=== PATIENT | female | born 1975 | race Caucasian/White ===

== ENCOUNTER 2017-03-31 23:34 | Emergency (ER) | payer OTHER ==
--- NOTE | 2017-04-01 03:19 | ED ORDER SUMMARY ---
..... Patient: ROBBY PACK OrderSheet [facility] VisitID: [id number] [place] [address] 41y, F Registration Date/Time: 03/31/2017 ORDER SHEET Weight: 51.7 kg (stated) Allergies: No Known Drug Allergy GENERAL ORDERS: UA-Culture if indicated Urgent (02:00 04/01/2017 Rodney BURCIAGA) (Ack 2:08 CHagerty ER Machine Splitter) (2:11 RCollier R.N.) Urine Urgent (02:00 04/01/2017 Rodney BURCIAGA) (Ack 2:08 CHagfreeman ER Machine Splitter) (2:11 RCollier R.N.) Lumbar Spine 2 or 3V Urgent (02:28 04/01/2017 Rodney BURCIAGA) (Ack 2:29 CHagerty ER Machine Splitter) (2:52 Froylan) MEDICATION ORDERS: IV FLUIDS: Dilaudid IV 1 mg (HIGH ALERT MEDICATION, NOW) (01:59 04/01/2017 Rodney BURCIAGA) (Ack 2:00 RCollier R.N.) (2:12 RCollier R.N.) Zofran IV 4 mg (NOW) (02:00 04/01/2017 Rodney BURCIAGA) (Ack 2:00 RCollier R.N.) (2:12 RCollier R.N.) Toradol IV 30 mg (NOW) (02:28 04/01/2017 Rodney BURCIAGA) (Ack 2:34 RCollier R.N.) (2:53 RCollier R.N.) ORDER SHEET NOTES: [Electronically signed by Hayley Jimenez R.N. (03:38 04/01/2017)] [Electronically signed by Donald Jaimes MD (19:43 04/20/2017)] [Electronically locked/signed by Hayley Jimenez R.N. (03:38 04/01/2017)]
--- NOTE | 2017-04-01 03:19 | ED NURSING NOTES ---
Clinical Report - Nurses [facility] [place] [address] 03/31/2017 23:35 Patient: ROBBY PACK TRIAGE Triage time 00:Apr 01 2017. Acuity: LEVEL 3. Chief Complaint: BACK PAIN. Alert. PREETHI COMA SCORE: Preethi Coma Scale: 15- eyes open spontaneously (4); best verbal response- oriented x 4 (5); best motor response- obeys commands (6). --00:13 Blaze Rodriguez R.N. 00:04 04/01/17. BP: 104/50. HR: 60. RR: 16. O2 saturation: 96% on room air. Temp: 99 F (oral). Pain level now: 8/10. Additional comments: Back/Hip pain. --00:13 Blaze Rodriguez R.N. Weight: 51.7 kg stated. Height/Length: 63 inches Per Patient. BMI: 20.2. --00:06 Blaze Rodriguez R.N. Medications Claritin Oral, as needed. Multivitamins Oral 1 pill, daily. --00:08 Blaze Rodriguez R.N. Allergies No Known Drug Allergy. --00:09 Blaze Rodriguez R.N. History Arrived by private vehicle. Historian: patient. Accompanied by friend. Primary physician ([facility], [place], [place]). ( GLF landing on her (R) Hip region). This started yesterday. Onset. (about 1 hour ago). She has had trouble walking. History of recent trauma- fall ((R) Hip). ( trouble sitting). PAST MEDICAL HX: Tetanus status: unknown. Immunizations: status is unknown. Last normal menstrual period- a few years ago. Denies current . SOCIAL HX: Former smoker, end date 2015. History of drug use: marijuana. No alcohol use. No infectious disease exposure. ABUSE ASSESSMENT: No report of abuse. FALL RISK ASSESSMENT: Fall risk assessment completed. No fall risk identified. NUTRITIONAL RISK ASSESSMENT: The nutritional risk assessment revealed no deficiencies. FUNCTIONAL ASSESSMENT: Functional assessment: no impairments noted. LEARNING NEEDS ASSESSMENT: The learning needs assessment revealed no barriers. SKIN INTEGRITY ASSESSMENT: Skin integrity risk assessment completed. No skin integrity risk identified. --00:13 Blaze Rodriguez R.N. PROBLEMS: Seasonal allergic rhinitis. --00:10 Blaze Rodriguez R.N. ADDITIONAL SURGERIES: Ankle. --00:10 Blaze Rodriguez R.N. Interventions ID band on patient. To treatment room. --00:13 Blaze Rodriguez R.N. PHYSICAL ASSESSMENT To room via wheelchair. GENERAL / NEURO / PSYCH: Alert. Oriented X 4. RESPIRATORY: Respirations not labored. CVS: Normal heart rate and rhythm. GI / : Abdomen soft. EXTREMITIES: Limited ROM present in the right thigh. BACK: Soft tissue tenderness (R iliac crest and lower back). --00:14 Blaze Rodriguez R.N. NURSING PROGRESS NOTES Patient gowned. Reassurance given. Patient identifiers checked. Call light placed in reach. Side rails up x 1. Bed placed in lowest position. Brakes of bed on. Patient ready for evaluation- chart flagged and ED physician notified. --00:14 Blaze Rodriguez R.N. Care transferred and report received. --00:26 Hayley Jimenez R.N. ( pt repositioned for comfort. Ice pack given to pt, placed under right flank area. Warm blanket provided.). --00:36 Hayley Jimenez R.N. Patient ID band checked for patient name and birthdate. Clean catch urine collected; sample sent to lab. Specimen labeled in the presence of the patient. Two patient identifiers checked. Call light placed in reach of patient. Side rails up x 2. Bed placed in lowest position. Brakes of bed on. ( pt called needed to go to the bathroom. Offered bedpan and commode patient refuse assisted patient to bathroom then back to bed. patient now crying. ice bag applied to back.). --01:30 Yi Arriola R.N. 01:32 04/01/17. HR: 75 (regular, normal rate and strong). RR: 16 (regular, unlabored and normal). O2 saturation: 100% on room air. Pain level now: 07/18. --01:45 Yi Arriola R.N. 02:00 04/01/2017 Site #1 started via IV in the right antecubital space with an 20g angiocath, with aseptic technique and good blood return; one attempt. Blood drawn: rainbow set. Labeled in the presence of the patient and sent to the lab. Saline lock flushed with 10 mL saline. --02:11 Hayley Jimenez R.N. 02:05 04/01/2017 Zofran (Ondansetron HCl) IVP 4 mg given over 30 second(s) via site #1. Allergies verified and confirmed 5 rights. IV patency established. IV site checked: no pain, redness, or swelling. IV flushed thoroughly pre- and post-medication administration. IVP given by RN. --02:12 Hayley Jimenez R.N. 02:06 04/01/2017 Dilaudid (HYDROmorphone HCl PF) IVP 1 mg given over 1 minute(s) via site #1. Allergies verified, confirmed 5 rights and sedative warning given to the patient. IV patency established. IV site checked: no pain, redness, or swelling. IV flushed thoroughly pre- and post-medication administration. IVP given by RN. --02:12 Hayley Jimenez R.N. 02:12 04/01/17. BP: 109/55. HR: 80. RR: 15. O2 saturation: 99% on room air. Todd-Fall pain scale: 8/10. --02:13 Hayley Jimneez R.N. Patient transported to radiology by stretcher with tech. (02:35). --02:37 Hayley Jimenez R.N. 02:50. Patient returned from radiology by stretcher with tech. --02:53 Hayley Jimenez R.N. 02:51 04/01/2017 Toradol IVP 30 mg given over 1 minute(s) via site #1. Allergies verified and confirmed 5 rights. IV patency established. IV site checked: no pain, redness, or swelling. IV flushed thoroughly pre- and post-medication administration. IVP given by RN. --02:53 Hayley Jimenez R.N. 02:53 04/01/17. BP: 110/58. HR: 66. RR: 16. O2 saturation: 94% on room air. Todd-Fall pain scale: 01/16. --02:54 Hayley Jimenez R.N. DISPOSITION / DISCHARGE 03:30 04/01/2017 Site #1 removed upon discharge. Catheter intact. Manual pressure and bandage applied. --03:35 Hayley Jimenez R.N. Condition at departure: improved and stable. No learning barriers present. Discharge instructions provided and reviewed with the patient. Reviewed medication(s) side effects, precautions, dosing and course information. Prescription(s) given to the patient. Patient verbalized understanding. Written instructions provided in Italian. The patient was discharged home and accompanied by package lift operator. She left the Emergency Department in a wheelchair. Plant Nursery Worker driving. --03:36 Hayley Jimenez R.N. 03:33 04/01/17. BP: 101/50. HR: 81. RR: 15. O2 saturation: 93% on room air. Temp: deferred. Todd-Fall pain scale: 01/16. --03:36 Hayley Jimenez R.N. Locked/Released at 04/01/2017 3:38 by Hayley Jimenez R.N.
--- NOTE | 2017-04-01 03:19 | ED CLINICAL REPORT ---
Clinical Report - Physicians/Mid Levels [facility] [address] [place] [address] 03/31/2017 23:35 Patient: ROBBY PACK Time Seen: 01:01. Arrived- By private vehicle. Historian- patient. HISTORY OF PRESENT ILLNESS Chief Complaint: BACK INJURY. It is described as being severe and in the area of the lower lumbar spine and right lower lumbar spine and radiating to the right thigh. The quality is noted to be "pain". Onset- about 1 hour ago and it is still present. It was abrupt in onset and has been constant. No bladder dysfunction or bowel dysfunction. Patient notes an injury. Mechanism of injury- she lost balance and fell. (fell). No other injury. REVIEW OF SYSTEMS No chills, fever, sweats, calf pain or chest pain. No cough, difficulty breathing, pedal edema, palpitations or abdominal pain. No constipation, diarrhea, nausea or vomiting. She has had urgency and mild pain during urination. All systems otherwise negative, except as recorded above. PAST HISTORY Problems: Seasonal allergic rhinitis. Additional Surgeries: Ankle. Medications: Claritin Oral, as needed. Multivitamins Oral 1 pill, daily. Allergies: No Known Drug Allergy. SOCIAL HISTORY Former smoker, end date 2015. History of occasional drug use: marijuana. No alcohol use. FAMILY HISTORY Denies family medical history. ADDITIONAL NOTES The nursing notes have been reviewed. PHYSICAL EXAM Vital Signs: 04/01/2017 00:04 BP: 104/50. HR: 60. RR: 16. O2 saturation: 96%. Temp: 99 F. Pain level now: 8/10. Have been reviewed. Appearance: Alert. Eyes: Pupils equal, round and reactive to light. ENT: Pharynx normal. Neck: Normal inspection. Painless ROM. No vertebral tenderness. CVS: Heart sounds normal. Respiratory: No respiratory distress. Breath sounds normal. Abdomen: No visible injury. Soft and nontender. Bowel sounds normal. No organomegaly. No mass. Back: Muscle spasm of the back. Moderately limited ROM in the back- in the lumbar spine: decreased flexion, extension, right lateral bending, left lateral bending and rotation to the right and left. No vertebral point tenderness. Skin: Skin warm and dry. Normal skin color. Normal skin turgor. Extremities: No lower extremity edema. Extremities nontender. No calf tenderness. Neuro: No motor deficit. No sensory deficit. LABS, X-RAYS, AND EKG LS-Spine X-rays: (IMPRESSION: 1. Straightening of the lumbar spine suggestive of muscular spasm.). The X-rays were interpreted by the radiologist and contemporaneously by me. Laboratory Tests: UA-Culture if indicated: (ORI: 04/01/2017 01:25) ( MsgRcvd 04/01/2017 02:22) Final results Test Result Flag Units (Reference) URINE COLOR YELLOW URINE APPEARANCE CLEAR URINE GLUCOSE NEGATIVE (NEGATIVE) URINE BILIRUBIN NEGATIVE (NEGATIVE) URINE KETONE NEGATIVE (NEGATIVE) URINE SPECIFIC GRAVITY 1.010 (1.010-1.030) URINE PH 6.0 (5.0-8.0) URINE PROTEIN NEGATIVE (NEGATIVE) URINE UROBILINOGEN 0.2 EU/dL (0.2-1.0) URINE NITRITE NEGATIVE (NEGATIVE) URINE BLOOD 1+ (NEGATIVE) URINE LEUK ESTERASE POSITIVE (NEGATIVE) URINE RBC 0-1 rbc/hpf (0-1) URINE WBC 0-1 wbc/hpf (0-1) URINE EPITHELIAL CELLS 0-1 EPI/hpf (0-5) URINE BACTERIA FEW (1+) (NONE SEEN) URINE COMMENT CULTURE INDICATED URINE CULTURES ARE SET-UP BASED ON THE FOLLOWING CRITERIA:POSITIVE NITRITEPOSITIVE LEUKOCYTE ESTERASEGREATER THAN 10 WHITE BLOOD CELLSMODERATE (2+) OR GREATER BACTERIA Urine: (ORI: 04/01/2017 01:25) ( [facility] 04/01/2017 02:15) Final results Test Result Flag Units (Reference) URINE NEGATIVE . PROGRESS AND PROCEDURES Course of Care: Patient is stable. Patient/family counseled. Old medical records reviewed. Disposition: Discharged. Condition: stable. CLINICAL IMPRESSION Traumatic lumbar back pain. Sciatica present on the right. Acute urinary tract infection. INSTRUCTIONS Apply ice for 20 minutes four times a day until better. Don't apply ice directly to skin and don't use while asleep. No driving or operating machinery while taking medication. Sedative medication was given during your visit. No lifting greater than 5 lbs, no bending or stooping or no prolonged sitting until well. Do not work for three days. Warnings: GENERAL WARNINGS: Return or contact your physician immediately if your condition worsens or changes unexpectedly, if not improving as expected, or if other problems arise. Prescription Medications: Ibuprofen 600mg tablets: take 1 tablet orally every 8 hours as needed for pain. Dispense thirty (30). No refills. Flexeril 10 mg: Take 1 orally every 8 hours as needed for muscle spasm. Dispense twenty (20). No refills. Substitution is permissible. Macrobid 100 mg: Take 1 capsule orally every 12 hours for 7 days. No refills. Substitution is permissible. Follow-up: Follow up with your doctor Monday in two days. Call for the next available appointment. Understanding of the discharge instructions verbalized by patient. (Electronically signed by Donald Jaimes MD 04/20/2017 19:43)
--- NOTE | 2017-04-01 03:19 | ED ORDER SUMMARY ---
..... Patient: ROBBY PACK OrderSheet [facility] VisitID: [id number] [place] [address] 41y, F Registration Date/Time: 03/31/2017 ORDER SHEET Weight: 51.7 kg (stated) Allergies: No Known Drug Allergy GENERAL ORDERS: UA-Culture if indicated Urgent (02:00 04/01/2017 Rodney BURCIAGA) (Ack 2:08 CHagerty ER Tutoring Assistant) (2:11 RCollier R.N.) Urine Urgent (02:00 04/01/2017 Rodney BURCIAGA) (Ack 2:08 CHagfreeman ER Tutoring Assistant) (2:11 RCollier R.N.) Lumbar Spine 2 or 3V Urgent (02:28 04/01/2017 Rodney BURCIAGA) (Ack 2:29 CHagerty ER Tutoring Assistant) (2:52 Froylan) MEDICATION ORDERS: IV FLUIDS: Dilaudid IV 1 mg (HIGH ALERT MEDICATION, NOW) (01:59 04/01/2017 Rodney BURCIAGA) (Ack 2:00 RCollier R.N.) (2:12 RCollier R.N.) Zofran IV 4 mg (NOW) (02:00 04/01/2017 Rodney BURCIAGA) (Ack 2:00 RCollier R.N.) (2:12 RCollier R.N.) Toradol IV 30 mg (NOW) (02:28 04/01/2017 Rodney BURCIAGA) (Ack 2:34 RCollier R.N.) (2:53 RCollier R.N.) ORDER SHEET NOTES: [Electronically signed by Hayley Jimenez R.N. (03:38 04/01/2017)] [Electronically signed by Donald Jaimes MD (19:43 04/20/2017)] [Electronically locked/signed by Hayley Jimenez R.N. (03:38 04/01/2017)]
--- NOTE | 2017-04-01 06:46 | DIAGNOSTIC IMAGING REPORT ---
PROCEDURE: XR LUMBAR SPINE 2 OR 3 VIEWS INDICATION: TRAUMA/INJURY TECHNIQUE: Three views. COMPARISON: None. FINDINGS: Normal alignment without fracture. Normal disc spaces. Straightening of the lumbar spine. Soft tissues are unremarkable. IMPRESSION: 1. Straightening of the lumbar spine suggestive of muscular spasm.
--- NOTE | 2017-04-20 19:44 | ED DISCHARGE INSTRUCTIONS ---
Patient: ROBBY PACK General Instructions [facility] VisitID: [id number] [place] [address] 41y, F Registration Date/Time: 03/31/2017 Traumatic lumbar back pain. Sciatica present on the right. Acute urinary tract infection. INSTRUCTIONS Apply ice for 20 minutes four times a day until better. Don't apply ice directly to skin and don't use while asleep. No driving or operating machinery while taking medication. Sedative medication was given during your visit. No lifting greater than 5 lbs, no bending or stooping or no prolonged sitting until well. Do not work for three days. Warnings: GENERAL WARNINGS: Return or contact your physician immediately if your condition worsens or changes unexpectedly, if not improving as expected, or if other problems arise. Prescription Medications: Ibuprofen 600mg tablets: take 1 tablet orally every 8 hours as needed for pain. Dispense thirty (30). No refills. Flexeril 10 mg: Take 1 orally every 8 hours as needed for muscle spasm. Dispense twenty (20). No refills. Substitution is permissible. Macrobid 100 mg: Take 1 capsule orally every 12 hours for 7 days. No refills. Substitution is permissible. Follow-up: Follow up with your doctor Monday in two days. Call for the next available appointment. Understanding of the discharge instructions verbalized by patient. ADDITIONAL INFORMATION Sciatica Sciatica ("Lumbar Radiculopathy") causes a pain that spreads from the lower back down into the buttock, hip and leg. Sometimes leg pain can occur without any back pain. Sciatica is due to irritation or pressure on a spinal nerve as it comes out of the spinal canal. This is most often due to a bulge or rupture of a nearby spinal disk (the cartilage cushion between each spinal bone), which presses on a nearby nerve. Other causes include spinal stenosis (narrowing of the spinal canal) and spasm of the pyriform muscle (a muscle in the buttocks that the sciatic nerve passes through). Sciatica may begin after a sudden twisting/bending force (such as in a car accident), or sometimes after a simple awkward movement. In either case, muscle spasm is commonly present and contributes to the pain. The diagnosis of sciatica is made from the symptoms and physical exam. Unless you had a physical injury (such as a car accident or fall), X-rays are usually not ordered for the initial evaluation of sciatica because the nerves and disks cannot be seen on an x-ray. If signs of a compressed nerve are present (for example, loss of tendon reflex or strength in the leg), an MRI (magnetic resonance imaging) scan will need to be scheduled as an outpatient. Most sciatica (80-90%) gets better with medicine, exercise, physical therapy. If symptoms continue after at least three months of medical treatment, surgery may be considered. Home Care: You may need to stay in bed the first few days. But, as soon as possible, begin sitting or walking to avoid problems with prolonged bed rest. When in bed, try to find a position of comfort. A firm mattress is best. Try lying flat on your back with pillows under your knees. You can also try lying on your side with your knees bent up towards your chest and a pillow between your knees. Avoid prolonged sitting. This puts more stress on the lower back than standing or walking. Some persons find relief with heat (hot shower, hot bath or heating pad) and massage, while others prefer cold packs (crushed or cubed ice in a plastic bag, wrapped in a towel). Try both and use the method that feels best for 20 minutes several times a day. You may use acetaminophen (Tylenol) or ibuprofen (Motrin, Advil) to control pain, unless another pain medicine was prescribed. [ NOTE: If you have chronic liver or kidney disease or ever had a stomach ulcer or GI bleeding, talk with your doctor before using these medicines.] Be aware of safe lifting methods and do not lift anything over 15 pounds until all the pain is gone. Follow Up with your doctor or this facility if your symptoms do not start to improve after one week. Physical therapy or further testing may be needed. [NOTE: If X-rays were taken, they will be reviewed by a radiologist. You will be notified of any new findings that may affect your care.] Get Prompt Medical Attention if any of the following occur: Pain becomes worse, not controlled by the prescribed medicine Weakness or numbness in one or both legs Numbness in the groin, genital area Loss of bowel or bladder control Bladder Infection,Female (Adult) A bladder infection ("cystitis" or "UTI") usually causes a constant urge to urinate and a burning when passing urine. Urine may be cloudy, smelly or dark. There may be pain in the lower abdomen. A bladder infection occurs when bacteria from the vaginal area enter the bladder opening (urethra). This can occur from sexual intercourse, wearing tight clothing, dehydration and other factors. Home Care: Drink lots of fluids (at least 6-8 glasses a day, unless you must restrict fluids for other medical reasons). This will force the medicine into your urinary system and flush the bacteria out of your body. Avoid sexual intercourse until your symptoms are gone. Avoid caffeine, alcohol and spicy foods. These can irritate the bladder. A bladder infection is treated with antibiotics. You may also be given Pyridium (generic = phenazopyridine) to reduce the burning sensation. This medicine will cause your urine to become a bright orange color. The orange urine may stain clothing. You may wear a pad or panty-liner to protect clothing. Preventing Future Infections: Always wipe from front to back after a bowel movement. Keep the genital area clean and dry. Drink plenty of fluids each day to avoid dehydration. Both sexual partners should wash before intercourse. Urinate right after intercourse to flush out the bladder. Wear cotton underwear and cotton-lined panty hose; avoid tight-fitting pants. If you are on control pills and are having frequent bladder infections, discuss with your doctor. Follow Up: Return to this facility or see your doctor if ALL symptoms are not gone after three days of treatment. Get Prompt Medical Attention if any of the following occur: Fever of 100.4F (38C) or higher, or as directed by your healthcare provider No improvement by the third day of treatment Increasing back or abdominal pain Repeated vomiting; unable to keep medicine down Weakness, dizziness or fainting Vaginal discharge Pain, redness or swelling in the labia (outer vaginal area) Ibuprofen Oral tablet What is this medicine? IBUPROFEN (eye BYOO proe fen) is a non-steroidal anti-inflammatory drug (NSAID). It is used for dental pain, fever, headaches or migraines, osteoarthritis, rheumatoid arthritis, or painful monthly periods. It can also relieve minor aches and pains caused by a cold, flu, or sore throat. How should I use this medicine? Take this medicine by mouth with a glass of water. Follow the directions on the prescription label. Take this medicine with food if your stomach gets upset. Try to not lie down for at least 10 minutes after you take the medicine. Take your medicine at regular intervals. Do not take your medicine more often than directed. A special MedGuide will be given to you by the pharmacist with each prescription and refill. Be sure to read this information carefully each time. Talk to your garment manufacturing supervisor regarding the use of this medicine in children. Special care may be needed. What side effects may I notice from receiving this medicine? Side effects that you should report to your doctor or health patient care representative as soon as possible: allergic reactions like skin rash, itching or hives, swelling of the face, lips, or tongue black or bloody stools, blood in the urine or in vomit breathing problems changes in vision chest pain general ill feeling or flu-like symptoms nausea or vomiting redness, blistering, peeling or loosening of the skin, including inside the mouth slurred speech or weakness on one side of the body stomach pain unexplained weight gain or swelling unusually weak or tired yellowing of eyes or skin Side effects that usually do not require medical attention (report to your doctor or health patient care representative if they continue or are bothersome): constipation or diarrhea dizziness gas or heartburn stomach upset What may interact with this medicine? Do not take this medicine with any of the following medications: cidofovir ketorolac methotrexate pemetrexed This medicine may also interact with the following medications: alcohol aspirin diuretics lithium other drugs for inflammation like prednisone warfarin What if I miss a dose? If you miss a dose, take it as soon as you can. If it is almost time for your next dose, take only that dose. Do not take double or extra doses. Where should I keep my medicine? Keep out of the reach of children. Store at room temperature between 15 and 30 degrees C (59 and 86 degrees F). Keep container tightly closed. Throw away any unused medicine after the expiration date. What should I tell my health care provider before I take this medicine? They need to know if you have any of these conditions: asthma cigarette smoker drink more than 3 alcohol containing drinks a day heart disease or circulation problems such as heart failure or leg edema (fluid retention) high blood pressure kidney disease liver disease stomach bleeding or ulcers an unusual or allergic reaction to ibuprofen, aspirin, other NSAIDS, other medicines, foods, dyes, or preservatives or trying to get breast-feeding What should I watch for while using this medicine? Tell your doctor or healthcare professional if your symptoms do not start to get better or if they get worse. This medicine does not prevent heart attack or stroke. In fact, this medicine may increase the chance of a heart attack or stroke. The chance may increase with longer use of this medicine and in people who have heart disease. If you take aspirin to prevent heart attack or stroke, talk with your doctor or health patient care representative. Do not take other medicines that contain aspirin, ibuprofen, or naproxen with this medicine. Side effects such as stomach upset, nausea, or ulcers may be more likely to occur. Many medicines available without a prescription should not be taken with this medicine. This medicine can cause ulcers and bleeding in the stomach and intestines at any time during treatment. Ulcers and bleeding can happen without warning symptoms and can cause . To reduce your risk, do not smoke cigarettes or drink alcohol while you are taking this medicine. You may get drowsy or dizzy. Do not drive, use machinery, or do anything that needs mental alertness until you know how this medicine affects you. Do not stand or sit up quickly, especially if you are an older patient. This reduces the risk of dizzy or fainting spells. This medicine can cause you to bleed more easily. Try to avoid damage to your teeth and gums when you brush or floss your teeth. Cyclobenzaprine Hydrochloride Oral tablet What is this medicine? CYCLOBENZAPRINE (sye kloe LOUIE jorge preen) is a muscle relaxer. It is used to treat muscle pain, spasms, and stiffness. How should I use this medicine? Take this medicine by mouth with a glass of water. Follow the directions on the prescription label. If this medicine upsets your stomach, take it with food or milk. Take your medicine at regular intervals. Do not take it more often than directed. Talk to your garment manufacturing supervisor regarding the use of this medicine in children. Special care may be needed. What side effects may I notice from receiving this medicine? Side effects that you should report to your doctor or health patient care representative as soon as possible: allergic reactions like skin rash, itching or hives, swelling of the face, lips, or tongue chest pain fast heartbeat hallucinations seizures vomiting Side effects that usually do not require medical attention (report to your doctor or health patient care representative if they continue or are bothersome): headache What may interact with this medicine? Do not take this medicine with any of the following medications: cisapride droperidol flecainide grepafloxacin halofantrine levomethadyl MAOIs like Carbex, Eldepryl, Marplan, Nardil, and Parnate nilotinib pimozide probucol sertindole This medicine may also interact with the following medications: abarelix alcohol contrast dyes dolasetron guanethidine medicines for cancer medicines for depression, anxiety, or psychotic disturbances medicines to treat an irregular heartbeat medicines used for sleep or numbness during surgery or procedure methadone octreotide ondansetron palonosetron phenothiazines like chlorpromazine, mesoridazine, prochlorperazine, thioridazine some medicines for infection like alfuzosin, chloroquine, clarithromycin, levofloxacin, mefloquine, pentamidine, troleandomycin tramadol vardenafil What if I miss a dose? If you miss a dose, take it as soon as you can. If it is almost time for your next dose, take only that dose. Do not take double or extra doses. Where should I keep my medicine? Keep out of the reach of children. Store at room temperature between 15 and 30 degrees C (59 and 86 degrees F). Keep container tightly closed. Throw away any unused medicine after the expiration date. What should I tell my health care provider before I take this medicine? They need to know if you have any of these conditions: heart disease, irregular heartbeat, or previous heart attack liver disease thyroid problem an unusual or allergic reaction to cyclobenzaprine, tricyclic antidepressants, lactose, other medicines, foods, dyes, or preservatives or trying to get breast-feeding What should I watch for while using this medicine? Check with your doctor or health patient care representative if your condition does not improve within 1 to 3 weeks. You may get drowsy or dizzy when you first start taking the medicine or change doses. Do not drive, use machinery, or do anything that may be dangerous until you know how the medicine affects you. Stand or sit up slowly. Your mouth may get dry. Drinking water, chewing sugarless gum, or sucking on hard candy may help. Nitrofurantoin, Nitrofurantoin, Macrocrystalline Oral capsule What is this medicine? NITROFURANTOIN (lina sheikh) is an antibiotic. It is used to treat urinary tract infections. How should I use this medicine? Take this medicine by mouth with a glass of water. Follow the directions on the prescription label. Take this medicine with food or milk. Take your doses at regular intervals. Do not take your medicine more often than directed. Do not stop taking except on your doctor's advice. Talk to your garment manufacturing supervisor regarding the use of this medicine in children. While this drug may be prescribed for selected conditions, precautions do apply. What side effects may I notice from receiving this medicine? Side effects that you should report to your doctor or health patient care representative as soon as possible: allergic reactions like skin rash or hives, swelling of the face, lips, or tongue chest pain cough difficulty breathing dizziness, drowsiness fever or infection joint aches or pains pale or blue-tinted skin redness, blistering, peeling or loosening of the skin, including inside the mouth tingling, burning, pain, or numbness in hands or feet unusual bleeding or bruising unusually weak or tired yellowing of eyes or skin Side effects that usually do not require medical attention (report to your doctor or health patient care representative if they continue or are bothersome): dark urine diarrhea headache loss of appetite nausea or vomiting temporary hair loss What may interact with this medicine? antacids containing magnesium trisilicate probenecid quinolone antibiotics like ciprofloxacin, lomefloxacin, norfloxacin and ofloxacin sulfinpyrazone What if I miss a dose? If you miss a dose, take it as soon as you can. If it is almost time for your next dose, take only that dose. Do not take double or extra doses. Where should I keep my medicine? Keep out of the reach of children. Store at room temperature between 15 and 30 degrees C (59 and 86 degrees F). Protect from light. Throw away any unused medicine after the expiration date. What should I tell my health care provider before I take this medicine? They need to know if you have any of these conditions: anemia diabetes [id number] dehydrogenase deficiency kidney disease liver disease lung disease other chronic illness an unusual or allergic reaction to nitrofurantoin, other antibiotics, other medicines, foods, dyes or preservatives or trying to get breast-feeding What should I watch for while using this medicine? Tell your doctor or health patient care representative if your symptoms do not improve or if you get new symptoms. Drink several glasses of water a day. If you are taking this medicine for a long time, visit your doctor for regular checks on your progress. If you are diabetic, you may get a false positive result for sugar in your urine with certain brands of urine tests. Check with your doctor. You have been given the following additional information: Back Pain W/ Sciatica Bladder Infection, Female (Adult) Ibuprofen Oral tablet Cyclobenzaprine Hydrochloride Oral tablet Nitrofurantoin, Nitrofurantoin, Macrocrystalline Oral capsule No driving or operating machinery while taking medication. Sedative medication was given during your visit. No lifting greater than 5 lbs, no bending or stooping or no prolonged sitting until well. Do not work for three days. (Electronically signed by Donald Jaimes MD 04/20/2017 19:43)
--- NOTE | 2017-04-20 19:44 | ED MAR SUMMARY ---
..... Medication Administration Record Merged With [facility] [address] [place] [address] Patient: ROBBY PACK Visit ID: [id number] 41y, F Weight: 51.7 kg Height/Length: 63 in BMI: 20.2 ALLERGIES: No Known Drug Allergy Given 02:04/01/2017 Hayley Jimenez R.N. Medication Administered: ZOFRAN [IVP] (ONDANSETRON HCL), Dose: 4 mg IVP over 30 second(s), Site: #1 right AC. Medication Ordered: Zofran IV 4 mg (NOW). Given 02:04/01/2017 Hayley Jimenez R.N. Medication Administered: DILAUDID [IVP] (HYDROMORPHONE HCL PF), Dose: 1 mg IVP over 1 minute(s), Site: #1 right AC. Medication Ordered: Dilaudid IV 1 mg (HIGH ALERT MEDICATION, NOW). Given 02:04/01/2017 Hayley Jimenez R.N. Medication Administered: TORADOL [IVP], Dose: 30 mg IVP over 1 minute(s), Site: #1 right AC. Medication Ordered: Toradol IV 30 mg (NOW).
--- NOTE | 2017-04-20 19:44 | ED MED RECONCILIATION SUMMARY ---
Patient: ROBBY PACK Medication Reconciliation Report [facility] VisitID: [id number] [address] [place] [address] 41y, F Registration Date/Time: 03/31/2017 Weight: 51.7 kg Height/Length: 63 in. BMI: 20.2 ALLERGIES: No Known Drug Allergy The patient's Home Medications are listed below: THE FOLLOWING MEDICATIONS NEED TO BE RECONCILED: Claritin Oral Multivitamins Oral 1 pill, daily The source(s) of the original Home Medication information: Not obtained. The following Medications were given to the patient in the Emergency Department: Zofran [IVP] IVP 4 mg, administered: 04/01/2017 2:05:00 AM Dilaudid [IVP] IVP 1 mg, administered: 04/01/2017 2:06:00 AM Toradol [IVP] IVP 30 mg, administered: 04/01/2017 2:51:00 AM The following Medications were prescribed to the patient: Ibuprofen 600mg tablets: take 1 tablet orally every 8 hours as needed for pain. Dispense thirty (30). No refills. -- Donald Jaimes MD Flexeril 10 mg: Take 1 orally every 8 hours as needed for muscle spasm. Dispense twenty (20). No refills. Substitution is permissible. -- Donald Jaimes MD Macrobid 100 mg: Take 1 capsule orally every 12 hours for 7 days. No refills. Substitution is permissible. -- Donald Jaimes MD
--- NOTE | 2017-04-20 19:44 | ED MAR SUMMARY ---
..... Medication Administration Record Merged With [facility] [address] [place] [address] Patient: ROBBY PACK Visit ID: [id number] 41y, F Weight: 51.7 kg Height/Length: 63 in BMI: 20.2 ALLERGIES: No Known Drug Allergy Given 02:04/01/2017 Hayley Jimenez R.N. Medication Administered: ZOFRAN [IVP] (ONDANSETRON HCL), Dose: 4 mg IVP over 30 second(s), Site: #1 right AC. Medication Ordered: Zofran IV 4 mg (NOW). Given 02:04/01/2017 Hayley Jimenez R.N. Medication Administered: DILAUDID [IVP] (HYDROMORPHONE HCL PF), Dose: 1 mg IVP over 1 minute(s), Site: #1 right AC. Medication Ordered: Dilaudid IV 1 mg (HIGH ALERT MEDICATION, NOW). Given 02:04/01/2017 Hayley Jimenez R.N. Medication Administered: TORADOL [IVP], Dose: 30 mg IVP over 1 minute(s), Site: #1 right AC. Medication Ordered: Toradol IV 30 mg (NOW).
--- NOTE | 2017-04-20 19:44 | ED MED RECONCILIATION SUMMARY ---
Patient: ROBBY PACK Medication Reconciliation Report [facility] VisitID: [id number] [address] [place] [address] 41y, F Registration Date/Time: 03/31/2017 Weight: 51.7 kg Height/Length: 63 in. BMI: 20.2 ALLERGIES: No Known Drug Allergy The patient's Home Medications are listed below: THE FOLLOWING MEDICATIONS NEED TO BE RECONCILED: Claritin Oral Multivitamins Oral 1 pill, daily The source(s) of the original Home Medication information: Not obtained. The following Medications were given to the patient in the Emergency Department: Zofran [IVP] IVP 4 mg, administered: 04/01/2017 2:05:00 AM Dilaudid [IVP] IVP 1 mg, administered: 04/01/2017 2:06:00 AM Toradol [IVP] IVP 30 mg, administered: 04/01/2017 2:51:00 AM The following Medications were prescribed to the patient: Ibuprofen 600mg tablets: take 1 tablet orally every 8 hours as needed for pain. Dispense thirty (30). No refills. -- Donald Jaimes MD Flexeril 10 mg: Take 1 orally every 8 hours as needed for muscle spasm. Dispense twenty (20). No refills. Substitution is permissible. -- Donald Jaimes MD Macrobid 100 mg: Take 1 capsule orally every 12 hours for 7 days. No refills. Substitution is permissible. -- Donald Jaimes MD
== END 2017-04-01 03:30 | disposition home or self-care (01) ==
LOC: ED SRH 23:34
DX: S39.92XA Unspecified injury of lower back, initial encounter (principal); M54.31 Sciatica, right side; N39.0 Urinary tract infection, site not specified; W19.XXXA Unspecified fall, initial encounter; Y93.9 Activity, unspecified; Y92.9 Unspecified place or not applicable; Y99.9 Unspecified external cause status
CPT/HCPCS: 90004; 90469; 93070